=== PATIENT | female | born 1975 ===

== ENCOUNTER 2025-05-08 11:45 | Inpatient (IN) | payer OTHER ==
[~2025-05-08] VITALS: Ht 121.9 cm; Wt 56.7 kg
[2025-05-08] MEDS ORDERED: LEXAPRO20 MG (12:07)
[2025-05-08] MEDS ORDERED: WELLBUTRIN SR150 MG PO (12:07)
[2025-05-08] MEDS ORDERED: NIZORAL SHAMPO120 ML (12:08)
[2025-05-14] MEDS ORDERED: BUPIVACAINE HCL 30 ML VIAL IJ ONE (08:00)
[2025-05-14] MEDS ORDERED: LIDOCAINE HCL 1%/EPINEPHRINE 20ML VIAL IJ ONE (08:00)
[2025-05-14] MEDS ORDERED: METRONIDAZOLE/SODIUM CHLORIDE 500 MG/100 ML PIGGYBACK IV ONE (08:00)
[2025-05-14] MEDS ORDERED: CEFTRIAXONE SODIUM 2,000 MG VIAL IV ONE (08:00)
[2025-05-14] MEDS ORDERED: PROGESTERONE100 M1 (09:10)
[2025-05-14] MEDS ORDERED: LEXAPRO5 MG (09:11)
[2025-05-14] MEDS ORDERED: MORPHINE SULFATE 4 MG/ML VIAL IV ONE ×2 (09:25→10:45)
[2025-05-14] MEDS ORDERED: ONDANSETRON HCL 2 MG/ML VIAL ONE (10:23)
[2025-05-14] MEDS ORDERED: MORPHINE SULFATE 4 MG/ML CARTRIDGE IV ONE (13:45)
[2025-05-14] MEDS ORDERED: OxyCODONE HCL 5 MG TABLET (ROXICODONE) PO PRN (15:00)
[2025-05-14] MEDS ORDERED: MORPHINE SULFATE 4 MG/ML CARTRIDGE IV PRN (15:00)
[2025-05-14] MEDS ORDERED: ONDANSETRON HCL 2 MG/ML VIAL IV PRN (15:00)
[2025-05-14] MEDS ORDERED: RINGERS SOLUTION,LACTATED 1,000 ML IV SCH (15:00)
[2025-05-14 16:10] LABS: BASO % 0.1 % (0.1-1.2); EOS # 0.00 (0.04-0.54); EOS % 0.0 % (0.7-7.0); LYMPH # 0.43 (1.18-3.74); LYMPH % 4.4 % (19.3-53.1); MEAN PLATELET VOLUME 9.80 fl (9.4-12.4); MONO # 0.22 (0.24-0.82); MONO % 2.3 % (4.7-12.5); NEUT # 9.02 (1.56-6.13); NEUT % 93.0 % (34.0-71.1); RED CELL DISTRIBUTION WIDTH 12.3 % (11.6-14.4)
[2025-05-14] MEDS ORDERED: METOCLOPRAMIDE HCL 5 MG/ML VIAL ONE (16:42)
[2025-05-14] MEDS ORDERED: SIMETHICONE 125 MG CAPSULE PO ONE (16:42)
[2025-05-14] MEDS ORDERED: GABAPENTIN 300 MG CAPSULE PO ONE (16:43)
[2025-05-14] MEDS ORDERED: HYOSCYAMINE SULFATE 0.125 MG TAB.SUBL ONE (16:43)
[2025-05-14] MEDS ORDERED: CELECOXIB 200 MG CAPSULE PO ONE (16:43)
[2025-05-14] MEDS ORDERED: HYOSCYAMINE SULFATE 0.125 MG TAB.SUBL SL SCH (17:00)
[2025-05-14] MEDS ORDERED: METOCLOPRAMIDE HCL 5 MG/ML VIAL IV SCH (17:00)
[2025-05-14] MEDS ORDERED: SIMETHICONE 125 MG CAPSULE PO SCH (17:00)
[2025-05-14] MEDS ORDERED: GABAPENTIN 300 MG CAPSULE PO SCH (17:00)
[2025-05-14] MEDS ORDERED: CELECOXIB 200 MG CAPSULE PO SCH (17:00)
[2025-05-14 17:43] VITALS: BP 98/61; O2SAT 99
[2025-05-14] MEDS ORDERED: ACETAMINOPHEN 500 MG GEL..CAP PO SCH (20:00)
[2025-05-14] MEDS ORDERED: FAMOTIDINE/PF 20 MG/2 ML VIAL IV PUSH SCH (21:00)
[2025-05-15 01:10] VITALS: BP 91/52; O2SAT 99
[2025-05-15 06:17] LABS: BASO % 0.1 % (0.1-1.2); EOS # 0.03 (0.04-0.54); EOS % 0.4 % (0.7-7.0); LYMPH # 1.01 (1.18-3.74); LYMPH % 15.1 % (19.3-53.1); MEAN PLATELET VOLUME 9.90 fl (9.4-12.4); MONO # 0.49 (0.24-0.82); MONO % 7.3 % (4.7-12.5); NEUT # 5.14 (1.56-6.13); NEUT % 76.8 % (34.0-71.1); RED CELL DISTRIBUTION WIDTH 12.4 % (11.6-14.4)
[2025-05-15 06:54] LABS: BUN CREA RATIO 14.0 (7.0-25.0); CREATININE SERUM 0.51 mg/dL (0.55-1.02); GFR 128.71; GLUCOSE FASTING 76.0 mg/dL (65-100); OSMOLALITY SERUM 282.0 MOSM/KG (275-295)
[2025-05-15 08:40] VITALS: BP 95/57; O2SAT 98
[2025-05-15] MEDS ORDERED: BUPROPION HCL 150 MG TABLET.SA PO SCH (09:00)
[2025-05-15] MEDS ORDERED: LACTOBACILLUS ACIDOPHILUS 1 CAP CAP PO SCH (09:00)
[2025-05-15] MEDS ORDERED: LACTULOSE 20 G/30 ML BLIST.PACK PO SCH (09:00)
[2025-05-15] MEDS ORDERED: ENOXAPARIN SODIUM 40 MG/0.4 ML SYRINGE SUBCUTANEO SCH (17:00)
[2025-05-16] MEDS ORDERED: ENOXAPARIN SODIUM 40 MG/0.4 ML SYRINGE SUBCUTANEO SCH (09:00)
== END 2025-05-15 16:58 | disposition home or self-care (01) | DRG 331 ==
LOC: O/R 05-14 07:23 → SURH 05-14 11:45 → SURG 05-14 15:58
PROVIDERS: ADMIT Colon & Rectal Surgery; ATTEND Colon & Rectal Surgery
PROC: 0DQP4ZZ Repair Rectum, Percutaneous Endoscopic Approach (ICD-10-PCS; principal; 2025-05-14 14:45)
DX: K62.3 Rectal prolapse (principal)